=== PATIENT | female | born 1980 ===

== ENCOUNTER 2020-09-24 06:10 | Day surgery (SDC) | payer OTHER | END 2020-09-24 10:30 | disposition home or self-care (01) | LOC: AMB-ENDOS 06:10 | PROVIDERS: ATTEND Surgery | DX: D13.0 Benign neoplasm of esophagus (principal); K44.9 Diaphragmatic hernia without obstruction or gangrene; Z20.822 Contact with and (suspected) exposure to COVID-19 ==

== ENCOUNTER 2021-08-17 20:09 | Emergency (ER) | payer OTHER ==
[~2021-08-17] VITALS: Ht 154.9 cm; Wt 72.1 kg
[2021-08-17] MEDS ORDERED: ALDACTONE25 MG PO (21:08)
== END 2021-08-17 23:52 | disposition home or self-care (01) ==
LOC: ER 20:09
DX: A49.3 Mycoplasma infection, unspecified site (principal); J15.7 Pneumonia due to Mycoplasma pneumoniae